=== PATIENT | female | born 1995 ===

== ENCOUNTER → 2021-09-29 20:33 | Emergency (ER) | payer SELFPAY | LOC: ED 20:33 | DX: R51.9 Headache, unspecified (principal); Z53.21 Procedure and treatment not carried out due to patient leaving prior to being seen by health care provider ==

== ENCOUNTER 2021-11-03 22:11 | Emergency (ER) | payer SELFPAY | END 2021-11-03 22:50 | disposition left against medical advice (07) | LOC: ED 22:11 | DX: M54.9 Dorsalgia, unspecified (principal); Z53.21 Procedure and treatment not carried out due to patient leaving prior to being seen by health care provider ==

== ENCOUNTER 2021-11-07 21:30 | Emergency (ER) | payer SELFPAY ==
[2021-11-07 21:48] VITALS: BP 109/75
== END 2021-11-08 04:48 | disposition left against medical advice (07) ==
LOC: ED 21:30
DX: R07.89 Other chest pain (principal); Z53.21 Procedure and treatment not carried out due to patient leaving prior to being seen by health care provider